=== PATIENT | male | born 1985 | race Caucasian/White ===

== ENCOUNTER 2018-10-02 09:29 | Emergency (ER) | payer OTHER ==
[~2018-10-02] VITALS: Ht 165.1 cm; Wt 72.6 kg
[2018-10-02 09:32] VITALS: BP 142/71
[2018-10-02] MEDS ORDERED: IBUPROFEN 600 MG TABLET PO ONE ×2 (09:52→10:00)
== END 2018-10-02 09:56 ==
LOC: ER 09:32
DX: R68.84 Jaw pain (principal); M54.9 Dorsalgia, unspecified